=== PATIENT | male | born 1965 | race Caucasian/White ===

== ENCOUNTER → 2020-08-08 | Outpatient (CLI) | payer OTHER | END | disposition home or self-care (01) | LOC: PLD 08:38 → LAB SHORT 08:38 | DX: L57.0 Actinic keratosis (principal); L73.8 Other specified follicular disorders; L08.9 Local infection of the skin and subcutaneous tissue, unspecified | CPT/HCPCS: 88305 ==

== ENCOUNTER 2024-10-19 06:29 | Day surgery (SDC) | payer BC ==
[2024-10-19] VITALS (13 sets, daily range): BP systolic 116–148; BP diastolic 72–89
[~2024-10-19] VITALS: Ht 172.7 cm; Wt 82.4 kg
[~2024-10-19 06:29] MED LIST: Lactated Ringer's 1,000 ML IV SCH
[2024-10-19] MEDS ORDERED: propofoL 20 ML IV ONE (07:14)
--- NOTE | 2024-10-19 07:32 | NUR ---
10/19/24 0732 Luis Hernandez CONFIRMED AND REVIEWED H&P, MEDCICATIONS, ALLERGIES, MEDICAL HISTORY, RESPIRATORY HISTORY, VITAL SIGNS, 3-LEAD EKG, CONSENTS, AND PHYSICIAN ORDERS. PATIENT CONFIRMS NPO STATUS AND AGREES WITH SCHEDULED PROCEDURE. MONITOR INTACT WITH CONTINUOUS PULSE OXIMETRY, CAPNOGRAPHY, 3-LEAD EKG, INTERMITTENT BP. SUPPLEMENTAL O2 TO BE TITRATED THROUGHOUT PROCEDURE TO MAINTAIN O2 SATURATION ABOVE 90%. PATIENT DETERMINED TO BE ASA APPROPRIATE FOR PROPOFOL SEDATION PRIOR TO START OF PROCEDURE BY DR. REYES.
--- NOTE | 2024-10-19 08:13 | NUR ---
Discharge instructions reviewed with patient. Patient verbalizes understanding. Copy given to patient to take home. PT RIDE WILL ARRIVE AT 9 AM, PT TO WAIT IN WAITING ROOM UNTIL THEN. PT TOLERATED ORANGE JUICE WELL, NO C/O.
== END 2024-10-19 23:00 | disposition home or self-care (01) ==
LOC: ORSCMMR 06:29 → ORD 07:30 → ORSCMMR 07:30
PROVIDERS: Internal Medicine Gastroenterology
PROC: 0DJD8ZZ Inspection of Lower Intestinal Tract, Via Natural or Artificial Opening Endoscopic (ICD-10-PCS; principal; 2024-10-19 07:30)
DX: Z12.11 Encounter for screening for malignant neoplasm of colon (principal); K64.8 Other hemorrhoids
CPT/HCPCS: J2704; J7120

== ENCOUNTER 2025-05-10 09:52 | Day surgery (SDC) | payer OTHER, BC ==
[~2025-05-10] VITALS: Ht 172.7 cm; Wt 78.2 kg
[~2025-05-10 09:52] MED LIST changes: +AMOCLA875 PO; +CODACE30 PO; +IBUP800 PO; -Lactated Ringer's 1,000 ML IV SCH; +Lidocaine HCl 2% 10 ML SDA ONE
[2025-05-10] MEDS ORDERED: FentaNYL Citrate 50 MCG/ML 2 ML Injection ONE ×2 (10:19→13:13)
[2025-05-10] MEDS ORDERED: ACET500 PO (10:29)
[2025-05-10] MEDS ORDERED: Lidocaine 1%-Epineph 1:100000 20 ML MDV ONE (10:34)
[2025-05-10] MEDS ORDERED: Dexamethasone Sod Phos 10 MG/ML 1ML VIAL ONE (11:55)
[2025-05-10] MEDS ORDERED: Ondansetron HCl 2 MG / ML 2ML Vial ONE (11:55)
[2025-05-10] MEDS ORDERED: CeFAZolin Sodium 2,000 MG VIAL ONE (12:01)
--- NOTE | 2025-05-10 12:20 | NUR ---
05/10/25 1220 Rosa Babcock PT PRESENTED WITH SUTURES IN OP HAND, REMOVED BY DR. LOPEZ
--- NOTE | 2025-05-10 13:16 | NUR ---
05/10/25 1316 Ruth Castro REPORT RECEIVED FROM JUNE AND RN. PT AROUSABLE TO VERBAL STIMULI. DENIES NAUSEA, REPORTS PAIN IN LEFT HAND. DRESSING LEFT HAND. CAP REFILL <3 SECONDS, LEFT FINGERS PINK, WARM, DRY.
[2025-05-10] MEDS ORDERED: Ketorolac Tromethamine 30mg Vial ONE (13:40)
--- NOTE | 2025-05-10 13:41 | NUR ---
05/10/[address] AT BEDSIDE
[2025-05-10] MEDS ORDERED: HYDROcodone 5-APAP 325 TAB ONE (13:51)
[2025-05-10 14:11] VITALS: BP 143/90
== END 2025-05-10 14:29 | disposition home or self-care (01) ==
LOC: ORSCSDS 09:52
PROVIDERS: Orthopaedic Surgery
PROC: 01Q40ZZ Repair Ulnar Nerve, Open Approach (ICD-10-PCS; principal; 2025-05-10 11:45)
PROC: 0PSQ04Z Reposition Left Metacarpal with Internal Fixation Device, Open Approach (ICD-10-PCS; principal; 2025-05-10 11:45)
PROC: 0LQ80ZZ Repair Left Hand Tendon, Open Approach (ICD-10-PCS; principal; 2025-05-10 11:45)
DX: S62.307B Unspecified fracture of fifth metacarpal bone, left hand, initial encounter for open fracture (principal); S66.812A Strain of other specified muscles, fascia and tendons at wrist and hand level, left hand, initial encounter; W29.2XXA Contact with other powered household machinery, initial encounter; F17.220 Nicotine dependence, chewing tobacco, uncomplicated
CPT/HCPCS: A9270; C1713; C1776; J0690; J1100; J1885; J2003; J2405; J2704; J3010; J7120